=== PATIENT | female | born 1995 | race Caucasian/White ===

== ENCOUNTER 2017-05-12 10:33 | Emergency (ER) | payer MEDICAID, OTHER ==
[2017-05-12] MEDS: METHYLPREDNISOLONE 125 MG INJ IM (11:47)
[2017-05-12] MEDS: ACETAMINOPHEN 325 MG TAB PO (11:47)
[2017-05-12] MEDS: KETOROLAC 60 MG INJ IM (11:55)
== END 2017-05-12 13:57 | disposition home or self-care (01) ==
LOC: FTE 10:33
DX: J02.9 Acute pharyngitis, unspecified (principal)
CPT/HCPCS: 81025; 87070; 87880; 96372; 99284-25

== ENCOUNTER 2017-05-17 20:33 | Emergency (ER) | payer MEDICAID | END 2017-05-17 21:30 | disposition home or self-care (01) | LOC: E/R 20:33 | DX: J02.9 Acute pharyngitis, unspecified (principal) | CPT/HCPCS: 99282; Z7502 ==

== ENCOUNTER 2018-03-15 09:18 | Emergency (ER) | payer SELFPAY, MEDICAID ==
[2018-03-15] MEDS: predniSONE 20 MG TAB PO (09:42)
[2018-03-15] MEDS: DIPHENHYDRAMINE 50 MG INJ IM (09:42)
== END 2018-03-15 10:09 | disposition home or self-care (01) ==
LOC: FTE 09:18
DX: R21 Rash and other nonspecific skin eruption (principal)
CPT/HCPCS: 96372; 99284-25

== ENCOUNTER 2018-03-17 08:36 | Emergency (ER) | payer MEDICAID ==
[2018-03-17] MEDS: FAMOTIDINE 20 MG TAB PO (09:23)
[2018-03-17] MEDS: DIPHENHYDRAMINE 50 MG CAP PO (09:23)
== END 2018-03-17 09:35 | disposition home or self-care (01) ==
LOC: FTE 08:36
DX: L50.9 Urticaria, unspecified (principal)
CPT/HCPCS: 99283; Z7502

== ENCOUNTER 2018-06-24 07:02 | Emergency (ER) | payer SELFPAY, MEDICAID ==
[2018-06-24] MEDS: DIPHENHYDRAMINE 25 MG CAP PO (07:57)
[2018-06-24] MEDS: DEXAMETHASONE 10 MG/ML 1 ML INJ IM (07:58)
== END 2018-06-24 08:17 | disposition home or self-care (01) ==
LOC: FTE 07:02
DX: L50.9 Urticaria, unspecified (principal)
CPT/HCPCS: 96372; 99284-25